=== PATIENT | male | born 1965 | race Caucasian/White ===

== ENCOUNTER 2023-04-02 14:59 | Observation (INO) | payer BC ==
[2023-04-02 16:44] LABS: BASO % 0.9 % (0-2.0); EOS % 1.1 % (0-4.5); HEMATOCRIT 42.6 % (35.4-49); HEMOGLOBIN 13.9 GM/dL (11.7-16.9); LYMPH % 18.6 % (8-40); MCH 28.8 pg (25.7-33.7); MCHC 32.6 g/dl (32.0-35.9); MEAN CELL VOLUME 88.4 fl (80-96); MEAN PLT VOLUME 7.4 fl (7.5-11.1); MONO % 10.7 % (3.8-10.2); NEUT % 68.7 % (42.8-82.8); PLATELET COUNT 377 10^3/uL (134-434); RBC 4.82 M/mm3 (4.00-5.60); RDW 12.3 % (11.9-15.9); WHITE BLOOD COUNT 8.6 K/mm3 (4.0-10.0)
[2023-04-02 17:05] LABS: POTASSIUM 4.3 mmol/L (3.5-5.1)
[2023-04-02 17:07] LABS: CALCIUM 9.2 mg/dL (8.5-10.1)
[2023-04-02 17:08] LABS: ALBUMIN 4.2 g/dl (3.4-5.0); BLOOD UREA NITROGEN 18.8 mg/dL (7-18)
[2023-04-02 17:11] LABS: CREATININE 1.1 mg/dL (0.55-1.3)
[2023-04-02 17:12] LABS: BILIRUBIN,TOTAL 0.4 mg/dL (0.2-1); TOT PROT 7.3 g/dl (6.4-8.2)
[2023-04-02] MEDS: INSULIN SLIDING SCALE (NOVOLOG) 1 VIAL SQ SCH (21:18)
[2023-04-02] MEDS ORDERED: ATORVASTATIN CA 20 MG TABLET (FP) ONE (21:20)
[2023-04-02] MEDS: ATORVASTATIN CA 20 MG TABLET (FP) PO SCH (21:21)
[2023-04-03] MEDS: INSULIN SLIDING SCALE (NOVOLOG) 1 VIAL SQ SCH ×4 (07:37→21:08)
[2023-04-03 07:42] LABS: HEMATOCRIT 41.5 % (35.4-49); HEMOGLOBIN 13.6 GM/dL (11.7-16.9); MCH 28.8 pg (25.7-33.7); MCHC 32.8 g/dl (32.0-35.9); MEAN CELL VOLUME 88.1 fl (80-96); MEAN PLT VOLUME 7.6 fl (7.5-11.1); PLATELET COUNT 337 10^3/uL (134-434); RBC 4.71 M/mm3 (4.00-5.60); RDW 12.1 % (11.9-15.9); WHITE BLOOD COUNT 8.3 K/mm3 (4.0-10.0)
[2023-04-03 08:03] LABS: CALCIUM 8.7 mg/dL (8.5-10.1)
[2023-04-03 08:07] LABS: CREATININE 0.9 mg/dL (0.55-1.3)
[2023-04-03] MEDS ORDERED: ASPIRIN 81 MG CHEWABLE TABLETS ONE (09:18)
[2023-04-03] MEDS: ASPIRIN 81 MG CHEWABLE TABLETS PO SCH (09:56)
[2023-04-03 19:54] VITALS: RESP 18
[2023-04-03 20:11] VITALS: BMI 25.9
[2023-04-03] MEDS: ATORVASTATIN CA 20 MG TABLET (FP) PO SCH (21:08)
[2023-04-04] MEDS: INSULIN SLIDING SCALE (NOVOLOG) 1 VIAL SQ SCH ×2 (05:59→11:10)
[2023-04-04] MEDS: ASPIRIN 81 MG CHEWABLE TABLETS PO SCH (09:31)
[2023-04-04 11:12] VITALS: PULSE 87; TEMP 98.3
[2023-04-04 14:32] VITALS: BP 147/84
== END 2023-04-04 15:06 | disposition short-term general hospital (02) ==
LOC: JER 14:59 → JERBED 17:13 → J4W 04-03 18:53
PROVIDERS: ADMIT Internal Medicine; ATTEND Internal Medicine
DX: I20.0 Unstable angina (principal); I24.9 Acute ischemic heart disease, unspecified; E11.9 Type 2 diabetes mellitus without complications; E78.5 Hyperlipidemia, unspecified; Z91.018 Allergy to other foods
CPT/HCPCS: 0241U-QW; 36415; 71046-TC-FY; 80048; 80053; 80061; 82962; 83036; 84484; 85025; 85027; 93005; 93010; 93306-TC; 99285-25; G0378